=== PATIENT | female | born 2000 | race Hispanic/Latino ===

== ENCOUNTER 2021-06-05 22:06 | Inpatient (IN) | payer OTHER, SELFPAY ==
[~2021-06-05] VITALS: Ht 157.5 cm; Wt 76.7 kg
[2021-06-06] MEDS ORDERED: AMPICILLIN 2GM+NS 100ML 100 ML IV SCH
[2021-06-06] MEDS ORDERED: LACTATED RINGERS 1000ML 1,000 ML IV PRN
[2021-06-06 00:30] LABS: HEMATOCRIT 32.2 % (36-48); MEAN CORPUSCULAR HEMOGLOBIN 28.8 pg (27.0-33.0); MEAN CORPUSCULAR HGB CONC 32.3 g/dL (32.0-36.0); MEAN CORPUSCULAR VOLUME 89.2 fL (79-99); RED BLOOD CELL COUNT(AUTO) 3.61 MIL/uL (4.00-5.50); WHITE BLOOD COUNT (AUTO) 9.6 K/uL (4.8-10.8)
[2021-06-06] MEDS: AMPICILLIN 1GM+NS 50ML 50 ML IV SCH ×2 (04:26→08:25)
[2021-06-06] MEDS ORDERED: BUTORPHANOL TARTRATE 2 MG/ML IVP ONE (04:30)
[2021-06-06] MEDS ORDERED: OXYTOCIN-LR 20 UNITS/1000 ML 1,000 ML IV SCH ×3 (07:00→13:00)
[2021-06-06] MEDS ORDERED: BUTORPHANOL TARTRATE 2 MG/ML IVP SCH (10:30)
[2021-06-06] MEDS ORDERED: LIDOCAINE HCL 1% 20 ML VIAL ONE (11:08)
[2021-06-06 11:19] LABS: RAPID PLASMA REAGIN NONREACTIVE (NONREACTIVE)
[2021-06-06] MEDS ORDERED: ACETAMINOPHEN WITH CODEINE 1 TAB TAB PO PRN (13:00)
[2021-06-06] MEDS ORDERED: BENZOCAINE/LANOLIN/ALOE VERA 60 ML AEROSOL TP PRN (13:00)
[2021-06-06] MEDS ORDERED: MEASLES/MUMPS/RUBELLA VACCINE, LIVE 0.5 ML/VIAL SQ PRN (13:00)
[2021-06-06] MEDS ORDERED: ACETAMINOPHEN 325 MG TAB PO PRN (13:00)
[2021-06-06] MEDS ORDERED: WITCH HAZEL 1 PAD TP PRN (13:00)
[2021-06-06] MEDS ORDERED: DIPH,PERTUSS(ACELL),TET VAC/PF 0.5 ML VIAL IM PRN (13:00)
[2021-06-06] MEDS ORDERED: LANOLIN 30GM OINTMENT TP PRN (13:00)
[2021-06-06 13:22] VITALS: BP 116/73
[2021-06-06 16:44] VITALS: BP 124/73
[2021-06-06] MEDS ORDERED: PNV1TABL17 PO (18:35)
[2021-06-06 19:14] VITALS: BP 114/69
[2021-06-06] MEDS: IBUPROFEN 600 MG TABLET PO PRN (19:36)
[2021-06-06] MEDS: DOCUSATE SODIUM 100 MG CAP PO SCH (21:07)
[2021-06-06 23:39] VITALS: BP 110/50
[2021-06-07 03:23] VITALS: BP 110/43
[2021-06-07] MEDS: IBUPROFEN 600 MG TABLET PO PRN ×2 (06:46→12:33)
[2021-06-07 07:01] LABS: HEMATOCRIT 27.1 % (36-48); MEAN CORPUSCULAR HEMOGLOBIN 29.6 pg (27.0-33.0); MEAN CORPUSCULAR HGB CONC 32.1 g/dL (32.0-36.0); MEAN CORPUSCULAR VOLUME 92.2 fL (79-99); RED BLOOD CELL COUNT(AUTO) 2.94 MIL/uL (4.00-5.50); RED CELL DISTRIBUTION WIDTH 13.2 % (11.0-15.5); WHITE BLOOD COUNT (AUTO) 10.3 K/uL (4.8-10.8)
[2021-06-07 07:32] VITALS: BP 103/49
[2021-06-07] MEDS: DOCUSATE SODIUM 100 MG CAP PO SCH (08:13)
[2021-06-07] MEDS ORDERED: IBUP-2077 PO (10:17)
[2021-06-07] MEDS ORDERED: FERS325 PO (10:18)
[2021-06-07 11:28] VITALS: BP 116/65
== END 2021-06-07 14:45 | disposition home or self-care (01) | DRG 807 ==
LOC: OBSVTOIN 22:06 → LDH 22:06 → WSH 06-06 14:34
PROVIDERS: ADMIT Obstetrics & Gynecology; ATTEND Obstetrics & Gynecology
PROC: 10E0XZZ Delivery of Products of Conception, External Approach (ICD-10-PCS; principal; 2021-06-06)
PROC: 10907ZC Drainage of Amniotic Fluid, Therapeutic from Products of Conception, Via Natural or Artificial Opening (ICD-10-PCS; 2021-06-06)
PROC: 3E0134Z Introduction of Serum, Toxoid and Vaccine into Subcutaneous Tissue, Percutaneous Approach (ICD-10-PCS; 2021-06-06)
DX: O70.1 Second degree perineal laceration during delivery (principal); Z37.0 Single live birth; Z3A.38 38 weeks gestation of pregnancy; Z23 Encounter for immunization
CPT/HCPCS: 36415; 76805; 85027; 86592; 86701; 86850; 86900; 86901; 87340; 87390; 90707; A4351; G0378; J0290; J0595; J2590; J7120